=== PATIENT | female | born 1990 | race African-American/Black ===

== ENCOUNTER 2017-11-03 08:02 | Outpatient (CLI) | payer MEDICAID, OTHER | END 2017-11-03 08:03 | disposition home or self-care (01) | LOC: BICULT 08:02 | PROVIDERS: ATTEND Nurse Practitioner Family | DX: R10.30 Lower abdominal pain, unspecified (principal) | CPT/HCPCS: 76700; 76856 ==

== ENCOUNTER 2019-03-17 14:06 | Emergency (ER) | payer MEDICAID ==
--- NOTE | 2019-03-17 15:18 | RAD ---
TWO VIEW CHEST: INDICATIONS: Cough. FINDINGS: The lung russell are clear. The heart and mediastinum appear normal. The osseous structures are unrema rkable. IMPRESSION: Unremarkable chest. POS: [facility]
== END 2019-03-17 15:13 | disposition home or self-care (01) ==
LOC: ERS 14:06
DX: J06.9 Acute upper respiratory infection, unspecified (principal)
CPT/HCPCS: 71046

== ENCOUNTER 2019-08-05 23:40 | Emergency (ER) | payer MEDICAID | END 2019-08-06 00:40 | disposition home or self-care (01) | LOC: ERS 23:40 | DX: L25.9 Unspecified contact dermatitis, unspecified cause (principal) | CPT/HCPCS: 99282 ==

== ENCOUNTER 2020-02-11 17:43 | Emergency (ER) | payer MEDICAID | END 2020-02-11 19:00 | disposition home or self-care (01) | LOC: ERS 17:43 | DX: L25.9 Unspecified contact dermatitis, unspecified cause (principal) | CPT/HCPCS: 99281 ==

== ENCOUNTER 2021-05-03 17:37 | Emergency (ER) | payer MEDICAID | END 2021-05-03 18:59 | disposition home or self-care (01) | LOC: ERS 17:37 | DX: J06.9 Acute upper respiratory infection, unspecified (principal) | CPT/HCPCS: 99281 ==